=== PATIENT | female | born 1975 | race Caucasian/White ===

== ENCOUNTER → 2016-07-08 | Outpatient (CLI) | payer OTHER ==
--- NOTE | 2016-07-08 16:57 | Diagnostic Imaging Report ---
INDICATION: Injury with pain. FINDINGS: Lateral radiograph reveals straightening of cervical curvature without listhesis and the prevertebral space appears normal. The oblique views reveal no facet joint dislocation and no bony encroachment upon neural foramina. No fracture or bony destructive process. There is mild degenerative disc space narrowing at the mid to lower cervical levels with minimal endplate osteophytes. No fracture or acute abnormality. Pulmonary apices appear unremarkable. IMPRESSION: Very minimal degenerative changes without listhesis or fracture. No acute-appearing abnormality. Dictated by: Dictated on workstation # [id number]
--- NOTE | 2016-07-08 17:09 | Diagnostic Imaging Report ---
INDICATION: Neck pain, arm pain. FINDINGS: The acromioclavicular and glenohumeral joints appear normal. The visualized adjacent ribs and pleura are unremarkable. The clavicle appears intact. No fracture or dislocation. No abnormal soft tissue calcifications. No opaque loose body. IMPRESSION: Normal left shoulder radiographs. Results of this exam as well as separately dictated cervical spine radiographs were discussed by phone with the ordering physician. Dictated by: Dictated on workstation # [id number]
== END ==
LOC: RAD 14:52 → MERGE 14:52
PROVIDERS: ATTEND Family Medicine
DX: M25.512 Pain in left shoulder (principal); M54.2 Cervicalgia
CPT/HCPCS: 72050; 73030

== ENCOUNTER → 2016-07-10 | Outpatient (CLI) | payer OTHER ==
--- NOTE | 2016-07-10 09:49 | Diagnostic Imaging Report ---
EXAMINATION: Magnetic resonance imaging of the left shoulder without contrast. DATE: July 10, 2016. COMPARISON: Left shoulder radiographs, July 08, 2016. HISTORY: A 41-year-old female, left shoulder pain. TECHNIQUE: Magnetic Resonance Imaging sequences were performed of the shoulder without contrast. FINDINGS: ROTATOR CUFF, LIGAMENTS, TENDONS, AND MUSCLES: The supraspinatus, infraspinatus, teres minor, and subscapularis tendons and muscles are intact. There is normal rotator cuff muscle bulk and signal. LONG HEAD OF BICEPS: The biceps labral attachment and long head of the biceps tendon is intact. The long head of the biceps tendon is normally positioned within the bicipital groove. GLENOHUMERAL JOINT: The humeral head is well positioned relative to the glenoid. The labrum is grossly intact. There is no paralabral cyst. The articular cartilage is grossly intact. There is no joint effusion. ACROMIOCLAVICULAR JOINT: The acromioclavicular joint is normally aligned. The coracoclavicular and coracoacromial ligaments are intact. There are no degenerative changes of the acromioclavicular joint. BONE: There is an os acromiale without marrow edema adjacent to the pseudoarticulation to suggest abnormal motion. The bone marrow signal is unremarkable. Specifically, there is no acute fracture, bone contusion, or evidence of osteonecrosis. BURSAE AND SOFT TISSUES: The bursae and soft tissue surrounding the shoulder are unremarkable. IMPRESSION: 1. Os acromiale without evidence of abnormal motion at the pseudoarticulation. 2. Otherwise, unremarkable MRI of the left shoulder. Dictated by: Dictated on workstation # [id number]
== END ==
LOC: MERGE 07:45 → RAD 07:46
PROVIDERS: ATTEND Family Medicine
DX: M25.512 Pain in left shoulder (principal)
CPT/HCPCS: 73221